=== PATIENT | female | born 1985 | race Caucasian/White ===

== ENCOUNTER 2023-08-13 08:00 | Outpatient (CLI) | payer BC, OTHER | END 2023-08-13 23:59 | disposition home or self-care (01) | LOC: LAB.S 08:00 | PROVIDERS: ATTEND Physician Assistant Medical | DX: Z33.1 Pregnant state, incidental (principal) | CPT/HCPCS: 87086 ==

== ENCOUNTER 2023-08-16 09:17 | Outpatient (CLI) | payer OTHER ==
[2023-08-16 14:23] LABS: BASOPHILS % (AUTO) 0.5 %; EOSINOPHILS # (AUTO) 0.2 10^3/uL (0.0-0.7); EOSINOPHILS % (AUTO) 1.8 %; HCT - HEMATOCRIT 37.6 % (37.0-47.0); HGB - HEMOGLOBIN 12.8 g/dL (12.0-16.0); LYMPHOCYTES # (AUTO) 2.8 10^3/uL (1.5-3.5); LYMPHOCYTES % (AUTO) 33.1 %; MEAN CORPUSCULAR HEMOGLOBIN 29.6 pg (27.0-31.0); MEAN CORPUSCULAR VOLUME 86.8 fL (81.0-99.0); MEAN PLATELET VOLUME 10.1 fL (7.9-10.8); MONOCYTES # (AUTO) 0.6 10^3/uL (0.0-1.0); NEUTROPHILS # (AUTO) 4.8 10^3/uL (1.5-6.6); NEUTROPHILS % (AUTO) 57.4 %; PLT - PLATELET COUNT 269 10^3/uL (130-450); RED BLOOD COUNT 4.33 10^6/uL (4.20-5.40); RED CELL DISTRIBUTION WIDTH 12.2 % (12.0-15.0); WHITE BLOOD COUNT 8.4 x10^3/uL (4.8-10.8)
[2023-08-16 15:32] LABS: % IRON SATURATION 35 % (20-50); ALBUMIN 4.5 g/dL (3.2-5.5); ALBUMIN/GLOBULIN RATIO 1.4 (1.0-2.2); ALKALINE PHOSPHATASE 42 IU/L (42-121); ALT ALANINE AMINOTRANSFERASE 11 IU/L (10-60); AST ASPARTATE AMINOTRANSFERASE 11 IU/L (10-42); BILIRUBIN,TOTAL 0.4 mg/dL (0.2-1.0); BUN - BLOOD UREA NITROGEN 10 mg/dL (6-20); CALCIUM 9.3 mg/dL (8.5-10.3); CARBON DIOXIDE - CO2 23 mmol/L (21-32); CHLORIDE 103 mmol/L (101-111); CREATININE 0.7 mg/dL (0.6-1.3); GFR - MDRD 95 (>89); GLUCOSE 76 mg/dL (74-104); IRON 123 ug/dL (50-212); POTASSIUM 3.8 mmol/L (3.5-4.5); SODIUM 133 mmol/L (135-145); TOTAL IRON BINDING CAPACITY 347 ug/dL (250-450); TOTAL PROTEIN 7.7 g/dL (6.4-8.9); TRANSFERRIN 248 mg/dL (203-362)
[2023-08-16 17:40] LABS: THYROID STIMULATING HORMONE 3.03 uIU/mL (0.34-5.60)
[2023-08-16 17:50] LABS: HCG,QUALITATIVE BLOOD POSITIVE
[2023-08-17 06:34] LABS: RPR Non Reactive (Non Reactive)
[2023-08-17 08:17] LABS: HBsAG SCREEN Negative (Negative)
[2023-08-17 13:17] LABS: VARICELLA-ZOSTER AB IGG 1994 index (Immune >165)
== END 2023-08-16 09:18 | disposition home or self-care (01) ==
LOC: LAB.S 09:17
PROVIDERS: ATTEND Nurse Practitioner Acute Care
DX: Z33.1 Pregnant state, incidental (principal)
CPT/HCPCS: 36415; 80053; 82728; 83540; 84443; 84466; 84703; 85025; 86592; 86762; 86787; 86850; 86900; 86901; 87340

== ENCOUNTER 2023-08-19 08:00 | Outpatient (CLI) | payer OTHER ==
[2023-08-19 15:51] LABS: BILIRUBIN,URINE NEGATIVE (NEGATIVE); GLUCOSE, URINE (UA) NEGATIVE (NEGATIVE); KETONES,URINE (UA) 15 mg/dL (NEGATIVE); LEUKOCYTE ESTERASE, URINE SMALL (NEGATIVE); NITRITE,URINE NEGATIVE (NEGATIVE); OCCULT BLOOD,URINE NEGATIVE (NEGATIVE); PH,URINE 6.5 PH (5.0-7.5); PROTEIN,URINE NEGATIVE (NEGATIVE); UROBILINOGEN,URINE 0.2 (NORMAL) E.U./dL (NORMAL)
[2023-08-19 16:06] LABS: BACTERIA,URINE None Seen /HPF (None Seen); CLARITY,URINE CLEAR (CLEAR); RBC,URINE 0-5 /HPF (0-5); SQUAMOUS EPITHELIAL CELL,UR FEW Squamous (<= Few); WBC,URINE 0-3 /HPF (0-5)
== END 2023-08-19 23:59 | disposition home or self-care (01) ==
LOC: LAB.WC 08:00
PROVIDERS: ATTEND Obstetrics & Gynecology
DX: Z34.90 Encounter for supervision of normal pregnancy, unspecified, unspecified trimester (principal)
CPT/HCPCS: 81001; 87086

== ENCOUNTER 2023-08-30 15:48 | Outpatient (CLI) | payer OTHER ==
--- NOTE | 2023-09-02 19:09 | Ultrasound Report ---
PROCEDURE: OB 1st Trimester INDICATIONS: SUPERVISION OF OUTSIDE/PRIOR DATING DATA: Last menstrual period (LMP): 08/25/2022. LMP-based estimated date of delivery (THOMAS): 03/31/2024. First dating scan (date and location): 08/30/2023. Estimated date of delivery (THOMAS) from first dating scan: 04/04/2024. TECHNIQUE: Real-time scanning was performed of the fetus and maternal pelvic organs, with image documentation. COMPARISON: None. FINDINGS: Intrauterine gestational sac present. Embryo: Yolk sac and pole present. [place]-rump length measures 2.24 cm with an estimated gestat ional age of 8 weeks and 6 days. Mean gestational sac diameter measures 3.67 cm with an estimated ges tational age of 9 weeks and 0 days. Heart rate: 176-180 bpm. Cervical length: Closed Estimated gestational age: 8 weeks and 6 days Other: Tiny subchorionic bleed measuring 1.3 x 1 x 1.9 cm. Measurement variability in dating: +/- 4 weeks by LMP, +/- 7 days by mean sac diameter (use before 6 weeks gestation if crown-rump length not able to be measured), +/- 5 days by crown-rump length (6-12 weeks gestation). Maternal organs: Ovaries appear within normal limits. Corpus luteum cyst in the right ovary. IMPRESSION: 1.Single living intrauterine with estimated gestational age of 8 weeks and 6 days based on today's ultrasound. 2.Tiny subchorionic bleed measuring 1.3 x 1 x 1.9 cm. Reviewed by: Anay Stallings MD on 09/02/2023 7:08 PM PST Approved by: Anay Stallings MD on 09/02/2023 7:08 PM PST Station ID: [id number]
== END 2023-08-30 15:49 | disposition home or self-care (01) ==
LOC: DI 15:48
PROVIDERS: ATTEND Nurse Practitioner
DX: O20.8 Other hemorrhage in early pregnancy (principal); Z3A.08 8 weeks gestation of pregnancy

== ENCOUNTER 2023-09-09 08:00 | Outpatient (CLI) | payer OTHER ==
[2023-09-09 20:25] LABS: CHLAMYDIA TRACHOMATIS DNA NEGATIVE (NEGATIVE); NEISSERIA GONORRHOEAE DNA NEGATIVE (NEGATIVE); TRICHOMONAS VAGINALIS DNA NEGATIVE (NEGATIVE)
== END 2023-09-09 23:59 | disposition home or self-care (01) ==
LOC: LAB.WC 08:00
PROVIDERS: ATTEND Obstetrics & Gynecology
DX: Z11.3 Encounter for screening for infections with a predominantly sexual mode of transmission (principal)
CPT/HCPCS: 87491; 87591; 87661

== ENCOUNTER 2023-09-18 08:00 | Outpatient (CLI) | payer OTHER ==
[2023-09-20 00:08] LABS: HCV AB Non Reactive (Non Reactive); HIV SCREEN 4TH GENERATION Non Reactive (Non Reactive)
[2023-09-20 06:11] LABS: HSV 1 IGG TYPE SPEC <0.91 index (0.00-0.90); HSV 2 IGG TYPE SPEC <0.91 index (0.00-0.90)
== END 2023-09-18 23:59 | disposition home or self-care (01) ==
LOC: LAB 08:00 → LAB.S 09:37 → LAB 23:59
PROVIDERS: ATTEND Obstetrics & Gynecology
DX: O09.891 Supervision of other high risk pregnancies, first trimester (principal)
CPT/HCPCS: 36415; 86695; 86696; 86803; 87389

== ENCOUNTER 2023-10-17 09:48 | Outpatient (CLI) | payer OTHER ==
[2023-10-19 21:07] LABS: AFP MOM 1.11 (.); AFP VALUE 37.2 ng/mL (.); GEST. AGE ON COLLECTION DATE 16.3 weeks (.); INSULIN DEP DIABETES No (.); MATERNAL AGE AT EDD 36.5 yr (.); MULTIPLE GESTATION No (.); OPEN SPINA BIFIDA RISK 1 IN 8647 (.); RACE Caucasian (.); RESULTS Report (.); TEST RESULTS *Screen Negative* (.); WEIGHT 161 lbs (.)
== END 2023-10-17 09:49 | disposition home or self-care (01) ==
LOC: LAB.S 09:48
PROVIDERS: ATTEND Obstetrics & Gynecology
DX: Z36.0 Encounter for antenatal screening for chromosomal anomalies (principal)
CPT/HCPCS: 36415; 36416; 82105

== ENCOUNTER 2023-11-15 16:45 | Outpatient (CLI) | payer OTHER ==
--- NOTE | 2023-11-16 18:42 | Ultrasound Report ---
PROCEDURE: OB Anatomy Scan INDICATIONS: SUPERVISION OF HIGH RISK OUTSIDE/PRIOR DATING DATA: Last menstrual period (LMP): 06/25/2023. LMP-based estimated date of delivery (THOMAS): 03/31/2024. First dating scan (date and location): 08/30/2023, [place]. Estimated date of delivery (THOMAS) from first dating scan: 04/04/2024. The below data below was generated using the ultrasound THOMAS of 03/31/2024 TECHNIQUE: Real-time scanning was performed of the fetus, with image documentation and biometric measurements. Endovaginal scanning: Not performed. COMPARISON: OB ultrasound on August 30, 2023 FINDINGS: General: A single living intrauterine gestation is present. Presentation: Vertex Placenta: Placental position is anterior, without previa. Amniotic fluid index: 13.5 cm, within normal limits for gestational age. heart rate: 157 beats per minute. Maternal cervical canal: 4.19 cm long; normal length is 2.5 cm or more. biometrics: Biparietal diameter: 4.81 cm, 20 weeks and 4 days Head circumference: 17.97 cm, 20 weeks and 3 days Abdominal circumference: 15.15 cm, 20 weeks and 3 days Femur length: 3.37 cm, 20 weeks and 4 days Estimated gestational age from initial scan: 20 weeks and 3 days Composite gestational age from present scan: 20 weeks and 2 days Estimated weight and percentile: 355.4 g, 47% Measurement variability in biometric dating: +/- 10 days from 12-20 weeks gestation, +/- 2 weeks from 20-30 weeks gestation, +/- 3 weeks at 30 weeks gestation or later. Anatomic survey: Neuro: Ventricles are normal at less than 10 mm. Cisterna magna is normal at 3-11 mm. Cerebellum i s normal in size and morphology. Nuchal skin fold: Normal at less than 6 mm between 14 and 20 weeks gestational age. Face: Nose and lips, facial profile are normal. Spine: No evidence for spina bifida. Heart: 4-chambered heart is present. Ventricular outflow tracts are not well seen. Diaphragm: Diaphragm is not well seen. Stomach: Left-sided stomach is present. Kidneys: No hydronephrosis. Normal is less than 5 mm in 2nd trimester, less than 7 mm in 3rd trimester. Cord: 3 vessel cord has orthotopic insertion. Bladder: Normal in size. Extremities: All 4 extremities are visualized. IMPRESSION: 1.Single living intrauterine gestation in vertex presentation. Appropriate interval growth. Estimated gestational age from present scan is 20 weeks and 2 days. 2.Diaphragm and ventricular outflow tracts are not well seen. Attention on follow-up imaging. Remaind er of the anatomy is not well seen. Reviewed by: Anay Stallings MD on 11/16/2023 6:41 PM PDT Approved by: Anay Stallings MD on 11/16/2023 6:41 PM PDT Station ID: [id number]
== END 2023-11-15 16:46 | disposition home or self-care (01) ==
LOC: DI 16:45
PROVIDERS: ATTEND Obstetrics & Gynecology
DX: O09.892 Supervision of other high risk pregnancies, second trimester (principal); Z3A.20 20 weeks gestation of pregnancy

== ENCOUNTER 2023-12-04 19:25 | Outpatient (CLI) | payer OTHER ==
--- NOTE | 2023-12-05 15:42 | Ultrasound Report ---
PROCEDURE: OB Follow up INDICATIONS: SUPERVISION OF OUTSIDE/PRIOR DATING DATA: Last menstrual period (LMP): 06/25/2023. LMP-based estimated date of delivery (THOMAS): 03/31/2024. First dating scan (date and location): 08/30/2023. Estimated date of delivery (THOMAS) from first dating scan: 04/04/2024. The below data below was generated using the clinical THOMAS of 03/31/2024 TECHNIQUE: Real-time scanning was performed of the fetus, with image documentation and biometric measurements. COMPARISON: 11/25/2023 OB ultrasound FINDINGS: General: A single living intrauterine gestation is present. Presentation: Vertex Placenta: Placental position is anterior, without previa. Amniotic fluid index: 15.3 cm, within normal limits for gestational age. Largest pocket 5.0 cm heart rate: 158 beats per minute. Maternal cervical canal: Closed biometrics: Estimated gestational age from initial scan: 23 weeks 1 day Other: Diaphragm and outflow tracts are within normal limits. IMPRESSION: Single live intrauterine with gestational age of 23 weeks 1 day. Anatomy visualization of diaphragm and outflow tracts are within normal limits. Reviewed by: Silvia Egan MD on 12/05/2023 3:40 PM PDT Approved by: Silvia Egan MD on 12/05/2023 3:40 PM PDT Station ID: [id number]
== END 2023-12-04 19:26 | disposition home or self-care (01) ==
LOC: DI 19:25
PROVIDERS: ATTEND Obstetrics & Gynecology
DX: O09.892 Supervision of other high risk pregnancies, second trimester (principal); Z3A.23 23 weeks gestation of pregnancy

== ENCOUNTER 2024-01-20 10:03 | Outpatient (CLI) | payer OTHER ==
[2024-01-20 14:36] LABS: HCT - HEMATOCRIT 33.6 % (37.0-47.0); MEAN CORPUSCULAR HEMOGLOBIN 29.4 pg (27.0-31.0); MEAN CORPUSCULAR HGB CONC 32.7 g/dL (32.0-36.0); MEAN CORPUSCULAR VOLUME 89.8 fL (81.0-99.0); MEAN PLATELET VOLUME 9.7 fL (7.9-10.8); RED BLOOD COUNT 3.74 10^6/uL (4.20-5.40); RED CELL DISTRIBUTION WIDTH 13.3 % (12.0-15.0); WHITE BLOOD COUNT 10.1 x10^3/uL (4.8-10.8)
[2024-01-21 05:12] LABS: RPR Non Reactive (Non Reactive)
== END 2024-01-20 10:04 | disposition home or self-care (01) ==
LOC: LAB.S 10:03
PROVIDERS: ATTEND Obstetrics & Gynecology
DX: O09.892 Supervision of other high risk pregnancies, second trimester (principal)
CPT/HCPCS: 36415; 82950; 85027; 86592; 86850

== ENCOUNTER 2024-01-30 08:24 | Outpatient (CLI) | payer OTHER ==
[2024-01-30 08:52] LABS: HCT - HEMATOCRIT 34.5 % (37.0-47.0); HGB - HEMOGLOBIN 11.2 g/dL (12.0-16.0); MEAN CORPUSCULAR HEMOGLOBIN 28.9 pg (27.0-31.0); MEAN CORPUSCULAR HGB CONC 32.5 g/dL (32.0-36.0); MEAN CORPUSCULAR VOLUME 88.9 fL (81.0-99.0); MEAN PLATELET VOLUME 9.5 fL (7.9-10.8); RED BLOOD COUNT 3.88 10^6/uL (4.20-5.40); RED CELL DISTRIBUTION WIDTH 13.3 % (12.0-15.0); WHITE BLOOD COUNT 10.6 x10^3/uL (4.8-10.8)
[2024-01-30 09:07] LABS: GTT GLUCOSE,FASTING 96 mg/dL (74-109)
[2024-01-31 04:12] LABS: RPR Non Reactive (Non Reactive)
== END 2024-01-30 08:25 | disposition home or self-care (01) ==
LOC: LAB 08:24
PROVIDERS: ATTEND Obstetrics & Gynecology
DX: O99.810 Abnormal glucose complicating pregnancy (principal); O09.892 Supervision of other high risk pregnancies, second trimester
CPT/HCPCS: 36415; 82951; 82952; 85027; 86592; 86850; 86870; 86880

== ENCOUNTER 2024-02-18 18:29 | Outpatient (CLI) | payer OTHER ==
--- NOTE | 2024-02-19 18:13 | Ultrasound Report ---
PROCEDURE: OB Follow up INDICATIONS: GESTATIONAL DIABETES OUTSIDE/PRIOR DATING DATA: Last menstrual period (LMP): 06/25/2023. LMP-based estimated date of delivery (THOMAS): 03/31/2024. First dating scan (date and location): 08/30/2023. Estimated date of delivery (THOMAS) from first dating scan: 04/04/2024. The below data below was generated using the clinical THOMAS of 03/31/2024 TECHNIQUE: Real-time scanning was performed of the fetus, with image documentation and biometric measurements. Endovaginal scanning: Not performed. COMPARISON: OB ultrasound 12/04/2023 FINDINGS: General: A single living intrauterine gestation is present. Presentation: For Placenta: Placental position is anterior, without previa. Amniotic fluid index: 15.3 cm, within normal limits for gestational age. heart rate: 160 beats per minute. Maternal cervical canal: Not well seen biometrics: Biparietal diameter: 8.8 cm 35 weeks 4 days 87th percentile Head circumference: 33.2 cm 37 weeks 6 days 95th percentile Abdominal circumference: 30.5 cm 34 weeks 3 days 68th percentile Femur length: 6.7 cm 34 weeks 2 days 46 percentile Estimated gestational age from initial scan: 34 weeks 0 days Composite gestational age from present scan: 35 weeks 4 days Estimated weight and percentile: 2537 g 70th percentile Measurement variability in biometric dating: +/- 10 days from 12-20 weeks gestation, +/- 2 weeks from 20-30 weeks gestation, +/- 3 weeks at 30 weeks gestation or more. Other: BPP 8 out of 8. Please see OB follow up scan report for further details. Nuchal cord is noted. Mild prominence of the renal pelvises bilaterally. IMPRESSION: Single live intrauterine with ultrasound gestational age of 35 weeks 4 days. Nuchal cord is noted. Reviewed by: Silvia Egan MD on 02/19/2024 6:12 PM PDT Approved by: Silvia Egan MD on 02/19/2024 6:12 PM PDT Station ID: [id number]
== END 2024-02-18 18:30 | disposition home or self-care (01) ==
LOC: DI 18:29
PROVIDERS: ATTEND Nurse Practitioner
DX: O24.410 Gestational diabetes mellitus in pregnancy, diet controlled (principal); Z3A.35 35 weeks gestation of pregnancy

== ENCOUNTER 2024-02-18 18:29 | Outpatient (CLI) | payer OTHER ==
--- NOTE | 2024-02-19 17:19 | Ultrasound Report ---
Images were obtained on the "OB Follow up" concurrent study, which is separately dictated. Biophysica l profile was 8 out of 8. No images are available under this accession number Reviewed by: Alexis Mitchell MD on 02/19/2024 5:18 PM PDT Approved by: Alexis Mitchell MD on 02/19/2024 5:18 PM PDT Station ID: [id number]
== END 2024-02-18 18:30 | disposition home or self-care (01) ==
LOC: DI 18:29
PROVIDERS: ATTEND Nurse Practitioner
DX: O24.410 Gestational diabetes mellitus in pregnancy, diet controlled (principal); Z3A.35 35 weeks gestation of pregnancy

== ENCOUNTER 2024-02-24 09:49 | Outpatient (CLI) | payer OTHER ==
--- NOTE | 2024-02-24 15:44 | Ultrasound Report ---
PROCEDURE: OB Biophysical Profile INDICATIONS: GESTATIONAL DIABETES OUTSIDE/PRIOR DATING DATA: Last menstrual period (LMP): 06/25/2023. LMP-based estimated date of delivery (THOMAS): 03/31/2024. First dating scan (date and location): 08/30/2023. Estimated date of delivery (THOMAS) from first dating scan: 04/04/2024. The below data below was generated using the working THOMAS of 03/31/2024 TECHNIQUE: Real-time scanning was performed of the fetus, with image documentation and biometric mady surements. Biophysical profile was also obtained. Endovaginal scanning: Not performed COMPARISON: 02/18/2024 FINDINGS: General: A single living intrauterine gestation is present. Presentation: Vertex Placenta: Placental position is anterior, without previa. Amniotic fluid index: 15.8 cm, within normal limits for gestational age. heart rate: 126 beats per minute. Maternal cervical canal: 3.3 cm long; normal length is 2.5 cm or more. Biophysical profile: Tone: 2 points. Movement: 2 points. Respiration: 2 points. Largest pocket of fluid: 2 points, 5.4 cm. IMPRESSION: 1. Living third trimester intrauterine with no sonographic evidence of complications. 2. Normal ultrasound biophysical profile measuring 8 out of 8. Reviewed by: Javier Pena MD on 02/24/2024 3:43 PM PDT Approved by: Javier Pena MD on 02/24/2024 3:43 PM PDT Station ID: [id number]
== END 2024-02-24 09:50 | disposition home or self-care (01) ==
LOC: DI 09:49
PROVIDERS: ATTEND Nurse Practitioner
DX: O24.410 Gestational diabetes mellitus in pregnancy, diet controlled (principal); Z3A.00 Weeks of gestation of pregnancy not specified

== ENCOUNTER 2024-03-09 08:00 | Outpatient (CLI) | payer OTHER | END 2024-03-09 23:59 | disposition home or self-care (01) | LOC: LAB.WC 08:00 | PROVIDERS: ATTEND Nurse Practitioner | DX: Z36.85 Encounter for antenatal screening for Streptococcus B (principal) | CPT/HCPCS: 87797 ==

== ENCOUNTER 2024-03-17 16:02 | Outpatient (CLI) | payer OTHER ==
--- NOTE | 2024-03-18 08:59 | Ultrasound Report ---
PROCEDURE: OB Follow up INDICATIONS: GESTATIONAL DIABETES OUTSIDE/PRIOR DATING DATA: Last menstrual period (LMP): 06/25/2023. LMP-based estimated date of delivery (THOMAS): 03/31/2024. First dating scan (date and location): 08/30/2023. Estimated date of delivery (THOMAS) from first dating scan: 04/04/2024. The below data below was generated using the clinical THOMAS of 03/31/2024 TECHNIQUE: Real-time scanning was performed of the fetus, with image documentation and biometric measurements. Endovaginal scanning: Not performed. COMPARISON: 02/24/2024 FINDINGS: General: A single living intrauterine gestation is present. Presentation: Vertex Placenta: Placental position is anterior, without previa. Amniotic fluid index: 14.8 cm, 59.7 percentile for gestational age. heart rate: 133 beats per minute. Maternal cervical canal not well visualized. biometrics: Biparietal diameter: 9.47 cm, 38 weeks 4 days, 85.7 percentile Head circumference: 34.92 cm, 40 weeks 4 days, 86.5 percentile Abdominal circumference: 33.54 cm, 37 weeks 3 days, 52.1 percentile Femur length: 7.38 cm, 37 weeks 5 days, 46.5 percentile Estimated gestational age from initial scan: 38 weeks 0 days Composite gestational age from present scan: 38 weeks 4 days Estimated weight and percentile: 3369.8 g, 62.7 percentile Measurement variability in biometric dating: +/- 10 days from 12-20 weeks gestation, +/- 2 weeks from 20-30 weeks gestation, +/- 3 weeks at 30 weeks gestation or more. Other: Not applicable. IMPRESSION: Single living intrauterine at 38 weeks 0 days, THOMAS of 03/31/2024. Estimated weight of 3369.8 g, 62.7 percentile. Reviewed by: Lakhwinder Nava MD on 03/18/2024 8:58 AM PDT Approved by: Lakhwinder Nava MD on 03/18/2024 8:58 AM PDT Station ID: [id number]
== END 2024-03-17 16:03 | disposition home or self-care (01) ==
LOC: DI 16:02
PROVIDERS: ATTEND Nurse Practitioner
DX: O24.410 Gestational diabetes mellitus in pregnancy, diet controlled (principal); Z3A.38 38 weeks gestation of pregnancy

== ENCOUNTER 2024-04-05 08:23 | Inpatient (IN) | payer OTHER ==
[2024-04-05] MEDS ORDERED: miSOPROStoL 200 MCG TABLET PR PRN (08:35)
[2024-04-05] MEDS ORDERED: TERBUTALINE 1 MG/ML VIAL SUBQ PRN (08:35)
[2024-04-05] MEDS ORDERED: ACETAMINOPHEN 500 MG TABLET PO PRN ×2 (08:35)
[2024-04-05] MEDS ORDERED: TRANEXAMIC ACID IN NACL 1,000 MG/100 ML BAG IV PRN (08:35)
[2024-04-05] MEDS ORDERED: miSOPROStoL 200 MCG TABLET BC PRN (08:35)
[2024-04-05] MEDS ORDERED: hydrALAZINE INJ 20 MG/ML VIAL IVP PRN ×2 (08:35)
[2024-04-05] MEDS ORDERED: SODIUM CHLORIDE FLUSH 0.9% 10 ML SYRINGE IVP PRN (08:35)
[2024-04-05] MEDS ORDERED: OXYTOCIN/SODIUM CHLORIDE 500 ML IV PRN (08:35)
[2024-04-05] MEDS ORDERED: CALCIUM CARBONATE CHEW 500 MG TABLET PO PRN (08:35)
[2024-04-05] MEDS ORDERED: METHYLERGONOVINE 0.2 MG/ML VIAL IM PRN (08:35)
[2024-04-05] MEDS ORDERED: OXYTOCIN 10 UNIT/ML VIAL IM PRN (08:35)
[2024-04-05] MEDS ORDERED: fentaNYL 100 MCG/2 ML VIAL IVP PRN (08:35)
[2024-04-05] MEDS ORDERED: LABETALOL 20 MG/4 ML SYRINGE IVP PRN ×3 (08:35)
[2024-04-05] MEDS ORDERED: NIFEdipine 10 MG CAPSULE PO PRN (08:35)
[2024-04-05] MEDS ORDERED: lidocaine 1% 20 ML MDV ID PRN (08:35)
[2024-04-05] MEDS ORDERED: CARBOPROST TROMETHAMINE 250 MCG/ML VIAL IM PRN (08:35)
[2024-04-05] MEDS ORDERED: ONDANSETRON 4 MG/2 ML VIAL IVP PRN (08:35)
--- NOTE | 2024-04-05 08:48 | HISTORY & PHYSICAL EXAMINATION ---
Admit History - : 1 Parity: 0 Premature: 0 Ectopic: 0 : 0 Care: positive: [facility] Complications This : positive: Gestational diabetes Smoking Status: Never smoker - Mother's Labs Mother's RH: positive: Negative GBS: positive: Group B Step Negative <Mireya Frey - Last Filed: 04/05/24 11:14> - Visit Reason Visit Reason: Contractions, Membranes rupture <Vik Tapia - Last Filed: 04/05/24 12:26> - Other Maternal History Other Maternal History: HPI: This 38 yo @ 40+5 weeks by LMP and confirmed by 8+6 week ultrasound. She had a membrane sweep in the office on 04/02/2024 when she was 3/60/-2. Intermittently contracted the next two days. Last night, at approximately at 0228. She was able to rest for a few hours until she started to contract. Opted for early labor at home. She presents to L&D approximately 6 hours after SROM for evaluation. Declined cervical exam upon arrival. Continued to leak a large amount of clear amniotic fluid. We reviewed management options at length and patient desires to be admitted for expectant management at this time. She has been a patient of [facility] for the duration of her which has remained uncomplicated except for AMA and GDM A1 (good control). No Headache, visual changes or right upper quadrant abdominal pain. Denies significant N/V. Denies urinary urgency or dysuria. In the event of an emergency, accepts the administration of blood products. ROS: All other symptoms reviewed and were negative except per HPI. Last u/s EFW: 03/17/2024: 3369.8g, 62.7%, HAVEN 14.8 Total maternal weight gain: 41.4# G1PO LMP: 06/25/23 THOMAS by LMP: 03/31/24 US:08/30/2023 @ 8+6 c/w LMP Final THOMAS:03/31/2024 FOB: [place] sex: It's a BOY PROBLEMS: Goes by "Ellyn" - A1DM - BGs very well controlled with diet - AMA: LDASA - Pubic bone pain second trimester- PT referral placed 11/04/23 Pre- Weight:150.6 BMI: 26.15 Blood type: O- RHoGAM given Rh: Neg Antibody: Neg CBC: PLT 269 HCT 37.6 HGB 12.8 RUB: Imm VZV:Imm HBsAg: Neg HepC: NR RPR/AB-EIA:NR HIV- NR PAP:09/29/19 - NILM GC/CT: 09/09 self swab negative Genetic: 09/18MaterniT Negative; 10/16 AFP negative HSV:negative IgG for HSV 1 and 2. Covid:vax x 3, virus x 2 Flu:09/09 FAS:ordered 10/07 WNL Placenta: anterior without previa Cord: 3VC HAVEN: WNL EFW: 47th%ile 50gm OGCT: 159 3HR GTT: 01/30/24 fast 96 1H 191 2H 167 3H 164 TDAP: declines- allergy Breast Pump: received Antibody screen: 01/19 NEGATIVE 3rd trimester PLT 197 HGB 11.0 HCT 33.6 RPR- Negative RHOGAM GIVEN 01/27/2024 GBS: 03/09 Negative Delivery plan: Hoping for natural labor. Contraception: unknown Social Hx: Monogamous with male partner. Denies current use of alcohol or tobacco, marijuana or other recreational drugs. Reports that she is safe in current relationship. Family Hx: Denies family history of congenital anomalies, Cystic Fibrosis or chromosomal abnormalities Allergies: Sulfa, Pertussis vaccine Medications: PNV, LDASA, tums, Magnesium citrate. Physical exam: Normocephalic, atraumatic Lungs: No increased work of breathing Abdomen gravid, soft, nontender. EFW 3600g FHR baseline 130's, moderate variability, + accelerations, no decelerations Contractions palpate moderate every 2-5 minutes with soft resting tone SVE deferred, vertex, grossly ruptured. Bilateral LE's no edema Mood is good. Assessment: 38 yo @ 40 +5 weeks gestation by 8+6 wk U/S Early labor Grossly ruptured, clear fluid FHR 130's Cat I GBS NEG Plan: Admit to [facility] for Expectant management Continuous monitoring/ Intermittent heart rate auscultation. Nitrous oxide PRN. Epidural PRN Maternal Request. Anticipate . Patient verbally consents to my participation in her care in my role as a student nurse collar stay fuser tender. XU Ontiveros, Student Nurse Benefits Director (Mireya Frey) Patient examined and assessed with Student Benefits Director Shante. Agree with plan. Patient uncomfortable. Will check at noon for cervical change and assess next steps including augmentation. Vik Tapia MD (Vik Tapia) - HPI Current EDU 03/31/24 Gestation 40 Weeks and 5 Days 1 Vital Signs Temperature 97.9 F 04/05/24 08:51 Heart Rate 78 04/05/24 08:51 Respiratory Rate 17 04/05/24 08:51 Blood Pressure 121/84 H 04/05/24 08:51 Temperature 97.9 F 04/05/24 08:51 Heart Rate 78 04/05/24 08:51 Respiratory Rate 17 04/05/24 08:51 Blood Pressure 121/84 H 04/05/24 08:51 O2 Saturation If not protocol: Oxygen Flow, liters/minute Physical - Abdominal Exam Vital Signs: Temp Pulse Resp BP Pulse Ox O2 Flow Rate 97.9 F 78 17 121/84 H 04/05/24 08:51 04/05/24 08:51 04/05/24 08:51 04/05/24 08:51 Plan for Labor - Plan For Labor I expect patient to be DC'd or transferred within 96 hours.: Yes <Mireya Frey - Last Filed: 04/05/24 11:14>
[2024-04-05] MEDS ORDERED: SODIUM CHLORIDE FLUSH 0.9% 10 ML SYRINGE IVP SCH (09:00)
[2024-04-05 09:32] LABS: BASOPHILS # (AUTO) 0.1 10^3/uL (0.0-0.1); BASOPHILS % (AUTO) 0.5 %; EOSINOPHILS # (AUTO) 0.2 10^3/uL (0.0-0.7); EOSINOPHILS % (AUTO) 1.6 %; LYMPHOCYTES # (AUTO) 2.3 10^3/uL (1.5-3.5); LYMPHOCYTES % (AUTO) 20.6 %; MEAN CORPUSCULAR HEMOGLOBIN 29.3 pg (27.0-31.0); MEAN CORPUSCULAR HGB CONC 33.3 g/dL (32.0-36.0); MEAN CORPUSCULAR VOLUME 87.8 fL (81.0-99.0); MEAN PLATELET VOLUME 10.4 fL (7.9-10.8); MONOCYTES # (AUTO) 0.6 10^3/uL (0.0-1.0); MONOCYTES % (AUTO) 5.8 %; NEUTROPHILS # (AUTO) 7.8 10^3/uL (1.5-6.6); PLT - PLATELET COUNT 169 10^3/uL (130-450); RED BLOOD COUNT 4.44 10^6/uL (4.20-5.40); RED CELL DISTRIBUTION WIDTH 13.5 % (12.0-15.0); WHITE BLOOD COUNT 10.9 x10^3/uL (4.8-10.8)
--- NOTE | 2024-04-05 12:30 | PROVIDER PROGRESS NOTE ---
<Mireya Frey - Last Filed: 04/05/24 12:25> Labor Progress Note - Labor Progress Note Labor Progress Note/Additional Text: S: Breathing through contractions which have increased in intensity since her arrival. Frequent moving in room and use of labor ball. Her , mother and God Mother are all supportive at the bedside. O: FHR 130's, No decelerations, + accelerations prior to intermittent auscultation. SVE 4/80/-2, posterior vertex. A: 38 yo @ 40+5 wks gestation by first trimester U/S Early labor P: Desires limited interventions and unmedicated labor Reevaluate for cervical change in 4 hours. Discussed pitocin augmentation initiation at that time if unchanged. Nitrous PRN. Other pain intervention as desired/requested by patient. Anticipate . XU Ontiveros, Student Nurse Factorer <Vik Tapia - Last Filed: 04/05/24 21:06> Labor Progress Note - Labor Progress Note Labor Progress Note/Additional Text: Agree with plan. If unchanged, will start augmentation.
[2024-04-05] MEDS ORDERED: FAMOTIDINE 20 MG TABLET PO PRN (16:24)
[2024-04-05] MEDS: LACTATED RINGERS 1,000 ML IV PRN (16:48)
--- NOTE | 2024-04-05 16:49 | PROVIDER PROGRESS NOTE ---
<Mireya Frey - Last Filed: 04/05/24 16:26> Labor Progress Note - Labor Progress Note Labor Progress Note/Additional Text: S: Continues to breathe through contractions. Doesn't feel that have contractions have gotten more intense the last 4 hours. Has been ambulating, performing nipple stimulation and moving on birthing ball. Took a 30 minute nap just after 1500. Rating contraction pains 4/10 vps. Verbalizes feeling ready for augmentation of labor if no significant cervical change has been made. . O: FHR 130's, no audible decelerations noted on doppler No significant cervical change. SVE 4.5/80/-2, vertex, grossly ruptured. Contractions q 2-5, moderate to palpation, soft uterine resting tone. A: 38yo @ 40+5 wks gestation by 7+3 week ultrasound. Early labor GBS negative. P: Initiate continuous monitoring now. Begin oxytocin titration per protocol to adequate labor pattern. Will encourage continued ambulation and movements. PRN nitrous Anticipate . XU Ontiveros, Student Nurse Promotor [employer] Ticket Sales <Vik Tapia - Last Filed: 04/05/24 21:07> Labor Progress Note - Labor Progress Note Labor Progress Note/Additional Text: Agree with assesment and plan. Will recheck in 2-4 hours and assess for cervical change. Anticipate .
[2024-04-05] MEDS: OXYTOCIN/SODIUM CHLORIDE 500 ML IV SCH (16:50)
--- NOTE | 2024-04-05 22:42 | PROVIDER PROGRESS NOTE ---
<Mireya Frey - Last Filed: 04/05/24 22:30> Labor Progress Note - Labor Progress Note Labor Progress Note/Additional Text: S: Breathing through contractions. Using nitrous intermittently. Her , Mother and God Mother all supportive at the bedside. Has been on ball, hands and knees, CUB tomas, ambulating and frequently changing positions the last few hours. Contractions significantly more intense. O: FHR 130's-140's , + accelerations, - significant decelerations. SVE 7/90/-1, vertex, ruptured. Minimal clear fluid now. Pitocin at 11mu/min A: 38yo @ 40+5 wks gestation by 7+3 wk U/S Active labor approximately 20 hours post SROM, clear fluid, increased bloody show Afebrile GBS negative P: Continue pitocin titration per protocol to maintain adequate contraction pattern Will reassess for further cervical change in 2-4 hours. Sooner if indicated. Consider IUPC placement for minimal cervical change. Continue to monitor for s/sx of intrauterine infection given prolonged rupture Encourage continued positional changes. Continue nitrous for labor pain management or consider alternative intervention as desired. Anticipate . XU Ontiveros, Student Nurse Automatic Trimming Sewer <Vik Tapia - Last Filed: 04/06/24 03:14> Labor Progress Note - Labor Progress Note Labor Progress Note/Additional Text: Patient in active labor. Continue oxytocin augmentation at this time. . Agree with assessment and plan by student meeting coordinator Shante. Vik Tapia MD
[2024-04-06] MEDS ORDERED: ONDANSETRON 4 MG/2 ML VIAL IVP PRN (03:19)
[2024-04-06] MEDS ORDERED: DOCUSATE SODIUM 100 MG CAPSULE PO PRN (03:19)
[2024-04-06] MEDS ORDERED: WITCH HAZEL/GLYCERIN 1 PAD TOP PRN (03:19)
[2024-04-06] MEDS ORDERED: CALCIUM CARBONATE CHEW 500 MG TABLET PO PRN (03:19)
[2024-04-06] MEDS ORDERED: SIMETHICONE CHEW 80 MG TABLET PO PRN (03:19)
[2024-04-06] MEDS ORDERED: LACTATED RINGERS 1,000 ML IV SCH (04:00)
[2024-04-06] MEDS: IBUPROFEN 600 MG TABLET PO SCH (04:05)
[2024-04-06] MEDS: ACETAMINOPHEN 500 MG TABLET PO SCH (04:06)
--- NOTE | 2024-04-06 04:10 | DELIVERY NOTE ---
<Mireya Frey - Last Filed: 04/06/24 08:22> Delivery Note - Labor Labor: positive: Augmented by oxytocin - Delivery Method Delivery Method: positive: Spontaneous vaginal delivery - Presentation Presentation: positive: Vertex, MARIA GUADALUPE - left occiput anterior - Nuchal Cord Nuchal Cord: positive: None - Anesthetic Anesthetic Type: Anesthetic: positive: Lidocaine - 1% plain - Amniotic Fluid Description Amniotic Fluid Description: positive: Clear - Laceration Laceration: positive: 2nd degree, Perineal - Suture Suture Type: positive: Vicryl Suture Size: positive: 3-0 - Delivery Outcome Delivery Outcome: positive: Livebirth - Jerome: positive: Placed in direct skin contact with mother, Bulb syringe, Stimulated, Warmed sex: positive: Male - Cord Cord: positive: 3 vessels - Placenta Placenta: positive: Intact - Estimated Blood Loss Estimated Blood Loss (in cc): 200 - Post Delivery Events Post Delivery Events: positive: No post delivery events - Delivery Comments (Free Text/Narrative) Delivery Comments (Free Text/Narrative): This 38 -year-old, G 1 P0000 presented to L&D approximately 7 hours s/p SROM (clear) on 04/05/2024. Admission cervical exam was deferred. Previously /2 in clinic several days earlier. She was jessica regularly, palpating soft- moderate intensity. Oxytocin (maximum infusion of 11 mu/min) was initiated for augmentation after minimal change 14 hours post SROM. GBS negative. FHR pattern demonstrated 140's -150's baseline in a category I prior to second stage. Normal labor course. Unmedicated labor. She then progressed to complete/complete @ 0140 and second stage began. : Normal spontaneous vaginal delivery of a viable male infant on 04/06/2024 @ 0237, compound delivery of the left hand. No nuchal cord. The was placed on maternal abdomen, stimulated, dried and placed skin to skin. Apgars 8 & 9 @ 1 & 5 minutes. The umbilical cord was allowed to stop pulsating at which time it was doubly clamped by delivering provider and cut by the patient. 3VC. Cord blood was obtained. Fundal massage and gently cord traction applied for active management of the third stage, placenta delivered spontaneously and intact and appeared normal @ 0247. EBL 200. Placenta was WAS NOT sent to pathol ogy. Pitocin administered via IV for hemostasis and added to the IV fluid and allowed to run freely. Uterine massage was performed until uterus was deemed firm. Inspection of the perineum noted a second degree perineal laceration. Repaired under local anesthesia (1% lidocaine 10 cc) and repaired with 3-0 vicryl rapide, in standards fashion under sterile conditions. Upon re-inspection the patient was hemostatic. Uterus again massaged and found to be firm. Needle and sponge counts were correct. Uterine fundus firm and there is no excessive bleeding. Tissues well approximated. Skin to skin initiated. Family bonding well. Both mother and baby are in stable condition. Patient verbalized consent for my participation in her delivery in my role as Student Nurse Tobacco Buyer. XU Ontiveros, Student Nurse Tobacco Buyer <Vik Tapia - Last Filed: 04/07/24 09:19> Delivery Note - Delivery Comments (Free Text/Narrative) Delivery Comments (Free Text/Narrative): I was present f and participated in the delivery and perineal repair of this 38-year-old G1, P0. Delivery was uncomplicated and patient was stable in room with her . Vik Tapia MD
--- NOTE | 2024-04-06 15:40 | PHARMACY PROGRESS NOTE ---
- Best Possible Medication History Admit Date and Time: 04/05/24 0835 Processed by: Pharmacy Medications reviewed in ED?: No Medication History completed: Yes Patient Interview: Completed (BY [employer]RIMP [employer]AT CAPTAIN [place]) As the person ultimately responsible for medication therapy, providers are able to order a medication from an existing home medication list in [facility] via the "Reconcile Routine" prior to Confirmation of that medication by manager decision support. Such practice is discouraged except when the physician, in their clinical judgment, deems that a medical need exists for a medication without regard to previous use.
[2024-04-06] MEDS: DOCUSATE SODIUM 100 MG CAPSULE PO PRN (20:21)
[2024-04-07 06:47] VITALS: O2SAT 98
--- NOTE | 2024-04-07 10:46 | Discharge Plan ---
Discharge Plan Problem Reviewed?: Yes Disposition: Home, Self Care Condition: Good Diet: Regular Shower Restrictions: No Driving Restrictions: No Instruction Topics: Self Care, , Anatomy, Nutrition , Breastmilk Expressing, Breastfeed Holds Additional Instructions or Follow Up instructions: 1 week follow-up by telehealth with Mireya. No Smoking: If you smoke, Please STOP! Call for help. Follow-up with: Mireya Frey ARNP [Provider Admit Priv/Credential] -
--- NOTE | 2024-04-07 10:48 | DISCHARGE SUMMARY ---
Discharge Summary Admit Date: 04/05/24 Discharge Date: 04/07/24 Code Status: Attempt Resuscitation Condition at Discharge: Good Discharge Disposition: 01 Home, Self Care - HPI History of Present Illness: Diagnosis on admission: 38 yo @ 40 +5 weeks gestation Early labor Grossly ruptured, clear fluid FHR 130's Cat I GBS NEG Diagnosis on Discharge 38 yo S/P , PPD#1 2nd degree perineal laceration with repair Normal course Brief History: She is a patient of [facility], history remarkable for GDM, A1. She presented on 04/05/2024 following spontaneous rupture of membranes. She was found to be jessica irregularly and augmentation of pitocin was initiated after time was allowed for natural onset of labor. She was able to achieve her goal of an unmedicated delivery. On 04/06/2024 @ 0237, approximately 24 hours after SROM, she had a beautifully spontaneously vaginal delivery of a viable male infant Apgars 8 & 9 @ 1 & 5 minutes respectively. EBL 200 ml. Second degree perineal laceration with repair. weight: 3299g She has been doing well in her course. She is ambulating and tolerating a regular diet. She is urinating without difficulty and her lochia is normal. Her pain is well controlled WITHOUT narcotic management. She will be discharged to home today on day 1 and encouraged IBU, tylenol and stool softeners PRN. She intends to follow up with [facility] in 1 week for telehealth with myself. She has been given precautions to call if she has any new or worsening sx such as fevers, chills, abdominal pain, increasing bleeding, or foul smelling vaginal lochia. preeclamptic precautions reviewed as well. VZV: immune Rubella: immune RH: negative, ( blood type O-) Rhogam not indicated. Patient verbalized consent for my continued participation in her delivery in my role as Student Nurse Harvesting Contractor. XU Ontiveros, Student Nurse Harvesting Contractor - ALLERGIES Allergies/Adverse Reactions: Allergies Allergy/AdvReac Type Severity Reaction Status Date / Time pertussis vaccine,fluid AdvReac Hives Verified 04/05/24 13:04 Sulfa (Sulfonamide AdvReac Hives Verified 04/05/24 13:04 Antibiotics) - MEDICATIONS Home Medications: Ambulatory Orders Medication Instructions Recorded Confirmed Pnv No.95/Ferrous Fum/Folic AC 1 each PO DAILY 04/05/24 04/06/24 [ Tablet] - PHYSICAL EXAM AT DISCHARGE General Appearance: positive: No acute distress Respiratory: positive: No respiratory distress Cardiovascular: positive: Regular rate & rhythm Abdomen: positive: Non-tender, Other (FF below U) Rectal: positive: Other (perineum and rectum tender- relief from topical management) Skin: positive: Color nml Extremities: positive: Non-tender Neurologic/Psychiatric: positive: Oriented x3 - LABS Result Diagrams: 04/05/24 09:00 - QUALITY (Female Hip Fx Only) Was patient sent home on osteoporosis medication?: No - FOLLOW UP Follow Up: 1 week telehealth with PHILIP Gomes - TIME SPENT Time Spent in Discharge (Minutes): 30
[2024-04-07 16:36] VITALS: BP 131/76
--- NOTE | 2024-04-07 16:44 | Labor Flowsheet ---
Labor Flowsheet Datetime Report Generated by CPN: 04/07/2024 16:43 Datetime: 04/07/2024 15:49 VITAL SIGNS NBP Sys/Deanne/Mean (mmHg): 131 : 76 : 89 Pulse: 86 Datetime: 04/06/2024 03:45 Respirations: 16 Temperature (C): 37.1 Datetime: 04/06/2024 03:06 Membranes Ruptured Date/Time: 04/05/2024 02:22 Membranes Rupture Method: Spontaneous Amniotic Fluid Color: Clear Amniotic Fluid Odor: Normal Datetime: 04/06/2024 02:55 TEACHING Instructional Method: Verbal Plan of Care: Plan of Care Discussed; Vaginal Delivery Unit Routine: Medications Datetime: 04/06/2024 02:47 Stage of : Recovery Datetime: 04/06/2024 02:35 FHR Baseline Rate : 140 Datetime: 04/06/2024 02:30 UTERINE ACTIVITY Monitor Mode: External Frequency (min): 3 Duration (sec): 60 ASSESSMENT A Monitor Mode: External US ASSESSMENT B FHR Baseline Rate : 145 Variability: Moderate 6-25 bpm Accelerations: 15X15 Decelerations: Variable LaborFlag: Labor Datetime: 04/06/2024 02:20 Variability: Moderate 6-25 bpm Decelerations: Variable MEDICATIONS Pitocin (milliunits): Increased to @ 9 Datetime: 04/06/2024 02:12 Pattern: Normal: <= 5 Contractions in 10 Minutes FHR Baseline Changes: No Baseline Change Datetime: 04/06/2024 01:58 Quality: Strong Resting Tone (Palpate): Relaxed Accelerations: 15X15 Category: Category II Patient Position/Activity: Hands-Knees COMMUNICATION Communication: Provider at Bedside Communication Comments: Dr Willie here Datetime: 04/06/2024 01:43 Notification Reason: Labor Status Datetime: 04/06/2024 01:40 VAGINAL EXAM Dilatation (cm): 10.0 Exam by: Mireya Datetime: 04/06/2024 01:03 Effacement (%): 100 Station: 0 Vaginal Bleeding: Normal Show Cervix, Consistency: Soft Cervix, Position: Midposition Medication Comments: using nitrous again for good effect Datetime: 04/06/2024 00:31 Pitocin Checklist: At Least 1 Acceleration of 15 bpm x 15 Seconds in 30 Minutes or Adequate Variabi lity; No More than 1 Late Deceleration Occurred in Past 30 Minutes; No More than 2 Variable Decelerat ions > 60 Seconds in Duration and decreasing >60 bpm in 30 minutes; No More than 5 Uterine Contractio ns in 10 Minutes for any 20 Minute Interval; Uterus Palpates Soft between Contractions Datetime: 04/06/2024 00:19 PATIENT CARE IV/Blood Work: New IV Bag Hung Datetime: 04/05/2024 23:52 Amniotic Fluid Amount: None Datetime: 04/05/2024 23:34 PAIN Pain Scale: 7 Pain Presence: Intermittent Pain Type: Cramping Pain Location: Abdomen Pain Coping: Breathing Through Contractions Comfort Measures: Breathing/Relaxation; Coaching; Family Support Datetime: 04/05/2024 23:09 Pain Assessment Comments: refusing nitrous for awhile Datetime: 04/05/2024 23:01 Temperature Route: Oral Datetime: 04/05/2024 22:48 Monitor Interventions for UA: [place] Adjusted Datetime: 04/05/2024 21:57 Vaginal Exam Comments: descent Datetime: 04/05/2024 21:53 Pain Relief Measures: Comfort Measures Datetime: 04/05/2024 21:42 I/O Interventions: Up to BR Datetime: 04/05/2024 20:04 Provider Reviewed Strip: Yes Provider Notified (Name): k Burchardt Datetime: 04/05/2024 18:42 Monitor Interventions for FHR: Ultrasound Adjusted Datetime: 04/05/2024 18:38 Patient Care Comments: ma Datetime: 04/05/2024 18:37 Pain Goal: 7 Datetime: 04/05/2024 18:15 Comments: prolonged accel Datetime: 04/05/2024 17:54 Contraction Comments: coupled Datetime: 04/05/2024 12:23 Vital Sign Comments: oral Datetime: 04/05/2024 11:30 Comments: FHT 140's with accel after contraction. Moderate variability during doppler.
== END 2024-04-07 16:25 | disposition home or self-care (01) | DRG 807 ==
LOC: WFO 08:23 → FBP 08:25 → WFO 08:34 → FBP 08:35
PROVIDERS: ADMIT Obstetrics & Gynecology; ATTEND Obstetrics & Gynecology
PROC: 10E0XZZ Delivery of Products of Conception, External Approach (ICD-10-PCS; principal; 2024-04-06)
PROC: 0KQM0ZZ Repair Perineum Muscle, Open Approach (ICD-10-PCS; 2024-04-06)
DX: O24.420 Gestational diabetes mellitus in childbirth, diet controlled (principal); Z37.0 Single live birth; Z3A.40 40 weeks gestation of pregnancy; O70.1 Second degree perineal laceration during delivery
CPT/HCPCS: 59409; 85025; 86850; 86900; 86901; A9270; J7120